=== PATIENT | male | born 1965 | race Caucasian/White ===

== ENCOUNTER 2024-11-17 05:31 | Inpatient (IN) ==
[2024-11-15 15:22] LABS: Basophils # (Auto) 0.03 K/mcL (0.00-0.30); Basophils % (Auto) 0.3 % (0.0-2.0); Eosinophils # (Auto) 0.03 K/mcL (0.00-0.70); Eosinophils % (Auto) 0.3 % (0.0-7.0); Hematocrit 48.8 % (40.1-51.0); Hemoglobin 16.9 g/dL (13.7-17.5); Lymphocytes # (Auto) 1.25 K/mcL (1.50-4.80); Lymphocytes % (Auto) 12.8 % (15.5-49.0); Mean Cell Volume 98.8 fL (80.0-100.0); Mean Corpuscular HGB Conc 34.6 g/dL (31.0-36.0); Mean Platelet Volume 9.3 fL (8.8-12.5); Monocytes # (Auto) 0.86 K/mcL (0.10-0.90); Monocytes % (Auto) 8.8 % (1.0-12.0); Neutrophils % (Auto) 77.6 % (38.0-78.0); Platelet Count 280 K/mcL (140-440); RBC 4.94 M/mcL (4.63-6.08); Red Cell Distribution Width 12.6 % (11.5-14.5); WBC 9.8 K/mcL (4.5-11.0)
[2024-11-15 15:43] LABS: Prothrombin Time 13.4 sec (11.9-14.5)
[2024-11-15 15:55] LABS: ALT/SGPT 70 U/L (<40); AST/SGOT 84 U/L (<40); Albumin 4.4 gm/dL (3.2-5.2); Albumin/Globulin Ratio 1.2 (1.0-2.3); Alkaline Phosphatase 80 U/L (39-117); Bilirubin,Total 0.6 mg/dL (0.1-1.0); Blood Urea Nitrogen 10 mg/dL (6-20); Calcium 9.8 mg/dL (8.6-10.4); Carbon Dioxide 25 mmol/L (22-30); Chloride 97 mmol/L (96-108); Globulin 3.6 gm/dL (2.2-3.7); Glomerular Filtration Rate 104; Glucose 119 mg/dL (70-105); Potassium 3.7 mmol/L (3.3-5.1); Sodium 139 mmol/L (133-145)
[2024-11-17] MEDS ORDERED: KETAMINE 50 MG/ML Syringe IV ONE (08:11)
[2024-11-17] MEDS ORDERED: fentaNYL 100 MCG/2 ML VIAL ONE (08:11)
[2024-11-17] MEDS ORDERED: SUGAMMADEX SODIUM 200 MG/2 ML VIAL IV ONE (08:11)
[2024-11-17] MEDS ORDERED: ONDANSETRON 4 MG/2 ML VIAL ONE ×2 (08:12→11:43)
[2024-11-17] MEDS ORDERED: DEXAMETHASONE 10 MG/ML VIAL ONE (08:12)
[2024-11-17] MEDS ORDERED: GLYCOPYRROLATE 0.2 MG/ML VIAL IV ONE (08:12)
[2024-11-17] MEDS ORDERED: ROCURONIUM 10 MG/ML ML IV ONE ×2 (08:12→12:00)
[2024-11-17] MEDS ORDERED: LIDOCAINE 2% PF 5 ML VIAL ONE (08:12)
[2024-11-17] MEDS ORDERED: PROPOFOL 200 MG/20 ML VIAL IV ONE (08:12)
[2024-11-17] MEDS ORDERED: ROPIVACAINE HCL/PF 30 ML VIAL IJ ONE (08:18)
[2024-11-17] MEDS: CEFEPIME 2 GM VIAL IV SCH (08:40)
[2024-11-17] MEDS: metroNIDAZOLE 500 MG/100 ML BAG IV SCH (08:41)
[2024-11-17] MEDS ORDERED: MAGNESIUM SULFATE 2 GM/50 ML BAG IV ONE (09:37)
[2024-11-17] MEDS ORDERED: HYDROmorphone 0.5 MG/0.5 ML SYRINGE ONE (11:35)
[2024-11-17] MEDS ORDERED: ONDANSETRON 4 MG/2 ML VIAL IV PRN ×2 (11:42→12:22)
[2024-11-17] MEDS ORDERED: IPRATROPIUM/ALBUTEROL 3 ML AMPUL.NEB NEB PRN (11:42)
[2024-11-17] MEDS ORDERED: PHENYLephrine 1 MG/10 ML SYRINGE (ANEST) ONE (12:05)
[2024-11-17] MEDS: fentaNYL 100 MCG/2 ML VIAL IV PRN (12:37)
[2024-11-17] MEDS: HYDROmorphone 1 MG/ML SYRINGE IV PRN (13:00)
[2024-11-17] MEDS: 0.9 % SODIUM CHLORIDE 1,000 ML IV SCH (13:31)
[2024-11-17] MEDS: ACETAMINOPHEN 1,000 MG/100 ML BAG IV SCH (13:34)
[2024-11-17] MEDS: LACTATED RINGERS 1,000 ML IV SCH (13:35)
[2024-11-17] MEDS: 0.9 % SODIUM CHLORIDE 10 ML SYRINGE IV SCH (13:36)
[2024-11-17] MEDS: PIPERACILLIN SODIUM/TAZOBACTAM 3.375 GM in 0.9 % SODIUM CHLORIDE 100 ML IV SCH (14:47)
[2024-11-18 06:36] LABS: Basophils # (Auto) 0.01 K/mcL (0.00-0.30); Basophils % (Auto) 0.1 % (0.0-2.0); Eosinophils # (Auto) 0 K/mcL (0.00-0.70); Eosinophils % (Auto) 0 % (0.0-7.0); Hematocrit 44.6 % (40.1-51.0); Lymphocytes # (Auto) 1.17 K/mcL (1.50-4.80); Lymphocytes % (Auto) 8.3 % (15.5-49.0); Mean Corpuscular HGB Conc 33.6 g/dL (31.0-36.0); Mean Platelet Volume 9.5 fL (8.8-12.5); Monocytes # (Auto) 1.22 K/mcL (0.10-0.90); Monocytes % (Auto) 8.7 % (1.0-12.0); Neutrophils % (Auto) 82.6 % (38.0-78.0); Platelet Count 256 K/mcL (140-440); RBC 4.29 M/mcL (4.63-6.08); Red Cell Distribution Width 12.6 % (11.5-14.5); WBC 14.1 K/mcL (4.5-11.0)
[2024-11-18 06:58] LABS: ALT/SGPT 62 U/L (<40); AST/SGOT 52 U/L (<40); Albumin 3.8 gm/dL (3.2-5.2); Albumin/Globulin Ratio 1.3 (1.0-2.3); Alkaline Phosphatase 59 U/L (39-117); Bilirubin,Direct 0.4 mg/dL (<0.3); Bilirubin,Total 0.7 mg/dL (0.1-1.0); Blood Urea Nitrogen 9 mg/dL (6-20); Calcium 8.7 mg/dL (8.6-10.4); Carbon Dioxide 23 mmol/L (22-30); Chloride 104 mmol/L (96-108); Glomerular Filtration Rate 104; Glucose 123 mg/dL (70-105); Lactate Dehydrogenase 212 U/L (135-225); Phosphorous 3.2 mg/dL (2.5-4.5); Sodium 139 mmol/L (133-145); Triglycerides 75 mg/dL (<150); Uric Acid 6.9 mg/dL (2.5-8.0)
[2024-11-18] MEDS: BENZOCAINE/MENTHOL 1 LOZENGE PO PRN (10:07)
[2024-11-18] MEDS: PIPERACILLIN SODIUM/TAZOBACTAM 4.5 GM in DEXTROSE 5% IN WATER 100 ML IV SCH (13:48)
[2024-11-19] MEDS: PIPERACILLIN SODIUM/TAZOBACTAM 4.5 GM in 0.9 % SODIUM CHLORIDE 100 ML IV SCH (05:58)
[2024-11-21 07:01] LABS: Basophils # (Auto) 0.04 K/mcL (0.00-0.30); Basophils % (Auto) 0.5 % (0.0-2.0); Eosinophils # (Auto) 0.35 K/mcL (0.00-0.70); Eosinophils % (Auto) 4.2 % (0.0-7.0); Hematocrit 42.3 % (40.1-51.0); Hemoglobin 14.3 g/dL (13.7-17.5); Lymphocytes # (Auto) 1.32 K/mcL (1.50-4.80); Lymphocytes % (Auto) 15.8 % (15.5-49.0); Mean Cell Volume 102.9 fL (80.0-100.0); Mean Corpuscular HGB Conc 33.8 g/dL (31.0-36.0); Mean Platelet Volume 9.6 fL (8.8-12.5); Monocytes # (Auto) 0.86 K/mcL (0.10-0.90); Monocytes % (Auto) 10.3 % (1.0-12.0); Neutrophils % (Auto) 68.7 % (38.0-78.0); Platelet Count 214 K/mcL (140-440); RBC 4.11 M/mcL (4.63-6.08); Red Cell Distribution Width 11.9 % (11.5-14.5); WBC 8.3 K/mcL (4.5-11.0)
[2024-11-21 07:05] LABS: ALT/SGPT 31 U/L (<40); AST/SGOT 29 U/L (<40); Albumin 3.3 gm/dL (3.2-5.2); Albumin/Globulin Ratio 1.1 (1.0-2.3); Alkaline Phosphatase 50 U/L (39-117); Bilirubin,Direct 0.2 mg/dL (<0.3); Bilirubin,Total 0.5 mg/dL (0.1-1.0); Blood Urea Nitrogen 5 mg/dL (6-20); Calcium 8.5 mg/dL (8.6-10.4); Carbon Dioxide 25 mmol/L (22-30); Chloride 101 mmol/L (96-108); Globulin 2.9 gm/dL (2.2-3.7); Glomerular Filtration Rate 120; Glucose 93 mg/dL (70-105); Lactate Dehydrogenase 202 U/L (135-225); Phosphorous 1.8 mg/dL (2.5-4.5); Potassium 3.4 mmol/L (3.3-5.1); Sodium 138 mmol/L (133-145); Triglycerides 113 mg/dL (<150); Uric Acid 4.4 mg/dL (2.5-8.0)
[2024-11-21] MEDS: oxyCODONE IR 5 MG TABLET PO PRN (15:21)
[2024-11-22 07:39] VITALS: O2SAT 98
[2024-11-22] MEDS: HYDROCHLOROTHIAZIDE 25 MG TABLET PO SCH (08:23)
[2024-11-22] MEDS: LOSARTAN 50 MG TABLET PO SCH (08:23)
[2024-11-22] MEDS: amLODIPine 10 MG TABLET PO SCH (08:24)
[2024-11-22 11:37] VITALS: TEMP 97.8
== END 2024-11-22 15:44 | disposition home or self-care (01) | DRG 331 ==
LOC: MEDSUR 05:31
PROVIDERS: ADMIT Family Medicine Adult Medicine; ATTEND Family Medicine Adult Medicine